=== PATIENT | female | born 1990 | race Caucasian/White ===

== ENCOUNTER 2017-11-02 20:15 | Emergency (ER) | payer OTHER ==
[2017-11-02 20:19] VITALS: BP 145/106; TEMP 99.4; BMI 27.4
--- NOTE | 2017-11-02 20:54 | ED.PDOC ---
General ED Provider: Dr. WALT MADRIGAL Chief Complaint: Palpitations Stated Complaint: Came for the palpitations since 3 pm, she did accidentally take Extra dose of HCTz today. having some SOB Time Seen by Physician: 20:52 Mode of Arrival: Walk-In Information Source: Patient Primary Care Provider: DORIS GALVEZ Nursing and Triage Documentation Reviewed and Agree: Yes Does patient meet sepsis criteria?: No If yes, has appropriate treatment been initiated?: No System Inflammatory Response Syndrome: Not Applicable Sepsis Protocol: For patient's 13 years and over: Temp is 96.8 and below OR 101 and greater Pulse >90 BPM Resp >20/minute Acutely Altered Mental Status Are patient's symptoms suggestive of a new infection, such as: -Pneumonia -Skin, Soft Tissue -Endocarditis -UTI -Bone, Joint Infection -Implantable Device -Acute Abdominal Infection -Wound Infection -Meningitis -Blood Stream Catheter Infection -Unknown Cardiovascular Complaint Exam - Palpitations Complaint/Exam Symptoms Are: Still present Timing: Constant Initial Severity: Mild Current Severity: Mild Character: Reports: Fast Aggravating: Reports: None Alleviating: Reports: None Associated Signs and Symptoms: Reports: Shortness of breath. Denies: Lightheadedness, Dizziness, Syncope, Chest pain, Diaphoresis, Nausea, Vomiting Related Surgical History: Reports: None Cardiac Risk Factors: Reports: None Pulmonary Embolism Risk Factors: Reports: None Atrial Fibrillation Risk Factors: Reports: None Thyroid Exam: Normal Differential Diagnoses: Panic Disorder, Hyperventilation Quality Indicators for AMI: EKG in 10min. Review of Systems - Review Of Systems Constitutional: Reports: No symptoms Eyes: Reports: No symptoms Ears, Nose, Mouth, Throat: Reports: No symptoms Respiratory: Reports: Short of air Cardiac: Reports: Palpitations GI: Reports: No symptoms : Reports: No symptoms Musculoskeletal: Reports: No symptoms Skin: Reports: No symptoms Neurological: Reports: No symptoms Endocrine: Reports: No symptoms Hematologic/Lymphatic: Reports: No symptoms All Other Systems: Reviewed and Negative Past Medical History - Past Medical History Previously Healthy: Yes Endocrine: Reports: None Cardiovascular: Reports: None Respiratory: Reports: None Hematological: Reports: None Gastrointestinal: Reports: None Genitourinary: Reports: None Neuro/Psych: Reports: None Musculoskeletal: Reports: None Cancer: Reports: None Last Menstrual Period: N/A - Surgical History General Surgical History: Reports: None - Family History Family History: Reports: None - Social History Smoking Status: Current every day smoker, Light tobacco smoker Smoking Cessation Counseling Time: > 3 min - 10 min Hx Substance Use: No Alcohol Screening: None - Immunizations Tetanus Shot up to Date: Yes Physical Exam - Physical Exam Appearance: Well-appearing, No pain distress, Well-nourished Eyes: SHASHI, EOMI, Conjunctiva clear ENT: Ears normal, Nose normal, Oropharynx normal Respiratory: Airway patent, Breath sounds clear, Breath sounds equal, Respirations nonlabored Cardiovascular: RRR, Pulses normal, No rub, No murmur GI/: Soft, Nontender, No masses, Bowel sounds normal, No Organomegaly Musculoskeletal: Normal strength, ROM intact, No edema, No calf tenderness Skin: Warm, Dry, Normal color Neurological: Sensation intact, Motor intact, Reflexes intact, Cranial nerves intact, Alert, Oriented Psychiatric: Affect appropriate, Mood appropriate Interpretation - Radiology Interpretation Radiology Interpretation By: ED Physician Radiology Results: Negative Exam Interpreted: CXR Re-Evaluation - Re-Evaluation Time of Re-Evaluation: 22:16 Status: Improved Critical Care Note - Critical Care Note Total Time (mins): 30 Course - Course Hematology/Chemistry: 11/02/17 20:38 11/02/17 20:38 Orders, Labs, Meds: Lab Review 11/02/17 11/02/17 11/02/17 20:38 20:38 20:38 WBC 15.00 H RBC 4.78 Hgb 15.5 Hct 44.9 MCV 93.9 MCH 32.4 H MCHC 34.5 RDW Coeff of Yulissa 12.8 Plt Count 282 Immature Gran % (Auto) 0.5 Neut % (Auto) 83.0 Lymph % (Auto) 9.1 L [place] % (Auto) 7.1 Eos % (Auto) 0.1 Baso % (Auto) 0.2 Immature Gran # (Auto) 0.1 Neut # (Auto) 12.5 H Lymph # (Auto) 1.4 [place] # (Auto) 1.1 Eos # (Auto) 0.0 Baso # (Auto) 0.0 D-Dimer (Manual) 373.58 Sodium 140 Potassium 3.1 L Chloride 102 Carbon Dioxide 23 Anion Gap 18.1 BUN 6 L Creatinine 0.79 Estimated GFR (MDRD) 89.00 BUN/Creatinine Ratio 7.59 Glucose 109 Calcium 9.8 Total Bilirubin 1.0 AST 26 ALT 28 Alkaline Phosphatase 73 Total Creatine Kinase 106 Troponin I < 0.0100 Total Protein 7.9 Albumin 4.3 Globulin 3.6 Albumin/Globulin Ratio 1.19 TSH Free T4 Urine Color Urine Clarity Urine pH Ur Specific [place] Urine Protein Urine Glucose (UA) Urine Ketones Urine Blood Urine Nitrite Urine Bilirubin Urine Urobilinogen Ur Leukocyte Esterase Urine Test Urine Opiates Screen Ur Oxycodone Screen Urine Methadone Screen Ur Propoxyphene Screen Ur Barbiturates Screen U Tricyclic Antidepress Ur Phencyclidine Scrn Ur Amphetamine Screen U Methamphetamines Scrn U Benzodiazepines Scrn Urine Cocaine Screen U Cannabinoids Screen 11/02/17 11/02/17 11/02/17 20:38 20:38 21:30 WBC RBC Hgb Hct MCV MCH MCHC RDW Coeff of Yulissa Plt Count Immature Gran % (Auto) Neut % (Auto) Lymph % (Auto) [place] % (Auto) Eos % (Auto) Baso % (Auto) Immature Gran # (Auto) Neut # (Auto) Lymph # (Auto) [place] # (Auto) Eos # (Auto) Baso # (Auto) D-Dimer (Manual) Sodium Potassium Chloride Carbon Dioxide Anion Gap BUN Creatinine Estimated GFR (MDRD) BUN/Creatinine Ratio Glucose Calcium Total Bilirubin AST ALT Alkaline Phosphatase Total Creatine Kinase Troponin I Total Protein Albumin Globulin Albumin/Globulin Ratio TSH 0.634 Free T4 1.06 Urine Color Urine Clarity Urine pH Ur Specific [place] Urine Protein Urine Glucose (UA) Urine Ketones Urine Blood Urine Nitrite Urine Bilirubin Urine Urobilinogen Ur Leukocyte Esterase Urine Test Urine Opiates Screen Negative Ur Oxycodone Screen Negative Urine Methadone Screen Negative Ur Propoxyphene Screen Negative Ur Barbiturates Screen Negative U Tricyclic Antidepress Negative Ur Phencyclidine Scrn Negative Ur Amphetamine Screen Negative U Methamphetamines Scrn Negative U Benzodiazepines Scrn Positive Urine Cocaine Screen Negative U Cannabinoids Screen Negative 11/02/17 11/02/17 21:30 21:30 WBC RBC Hgb Hct MCV MCH MCHC RDW Coeff of Yulissa Plt Count Immature Gran % (Auto) Neut % (Auto) Lymph % (Auto) [place] % (Auto) Eos % (Auto) Baso % (Auto) Immature Gran # (Auto) Neut # (Auto) Lymph # (Auto) [place] # (Auto) Eos # (Auto) Baso # (Auto) D-Dimer (Manual) Sodium Potassium Chloride Carbon Dioxide Anion Gap BUN Creatinine Estimated GFR (MDRD) BUN/Creatinine Ratio Glucose Calcium Total Bilirubin AST ALT Alkaline Phosphatase Total Creatine Kinase Troponin I Total Protein Albumin Globulin Albumin/Globulin Ratio TSH Free T4 Urine Color Yellow Urine Clarity Clear Urine pH 7.5 Ur Specific [place] 1.020 Urine Protein Negative Urine Glucose (UA) Negative Urine Ketones Negative Urine Blood Negative Urine Nitrite Negative Urine Bilirubin Negative Urine Urobilinogen 0.2 Ur Leukocyte Esterase Negative Urine Test Negative Urine Opiates Screen Ur Oxycodone Screen Urine Methadone Screen Ur Propoxyphene Screen Ur Barbiturates Screen U Tricyclic Antidepress Ur Phencyclidine Scrn Ur Amphetamine Screen U Methamphetamines Scrn U Benzodiazepines Scrn Urine Cocaine Screen U Cannabinoids Screen Orders Category Date Time Status EKG-(ED ONLY) Stat CARDIO 11/02/17 20:31 Completed CBC W/ AUTO DIFF Stat LAB 11/02/17 20:38 Completed COMPREHENSIVE METABOLIC PANEL Stat LAB 11/02/17 20:38 Completed CREATINE KINASE Stat LAB 11/02/17 20:38 Completed D-DIMER Stat LAB 11/02/17 20:38 Completed FREE T4 (FREE THYROXINE) Stat LAB 11/02/17 20:38 Completed FREE TRIIODOTHYRONINE (T3) Stat LAB 11/02/17 20:38 Received TROPONIN I Stat LAB 11/02/17 20:38 Completed TSH [THYROID STIMULATING HORMONE] Stat LAB 11/02/17 20:38 Completed URINALYSIS C & S IF INDICATED Stat LAB 11/02/17 21:30 Completed URINE DRUG SCREEN (RAPID FOR ED) [DRUG SCREEN, URINE, LAB 11/02/17 21:30 Completed RAPID] Stat URINE Stat LAB 11/02/17 21:30 Completed Lorazepam [Ativan] MEDS 11/02/17 20:55 Discontinued 1 mg IM ONCE STA Potassium Chloride [K-Dur] MEDS 11/02/17 21:14 Discontinued 40 meq PO ONCE STA CHEST, 2 VIEWS PA & LAT Stat RADS 11/02/17 21:27 Ordered Medications Discontinued Medications Generic Name Dose Route Start Last Admin Trade Name Freq PRN Reason Stop Dose Admin Lorazepam 1 mg 11/02/17 20:55 11/02/17 21:55 Ativan IM 11/02/17 20:56 1 mg ONCE STA Administration Potassium Chloride 40 meq 11/02/17 21:14 11/02/17 21:54 K-Dur PO 11/02/17 21:15 40 meq ONCE STA Administration Vital Signs: Temp Pulse Resp BP Pulse Ox 11/02/17 20:16 99.4 F 147 H 20 145/106 H 99 CHILANGO Risk Score CHILANGO Risk Score: Risk Score Odds of by 30D 0 0.1 (0.1-0.2) 1 0.3 (0.2-0.3) 2 0.4 (0.3-0.5) 3 0.7 (0.6-0.9) 4 1.2 (1.0-1.5) 5 2.2 (1.9-2.6) 6 3.0 (2.5-3.6) 7 4.8 (3.8-6.1) Departure - Departure Time of Disposition: 22:07 Disposition: HOME SELF-CARE Discharge Problem: Palpitations, Panic, Hypokalemia Instructions: Panic Attack (ED) Condition: Stable Pt referred to PMD for follow-up: Yes IPMP verified?: No Additional Instructions: Increase Hydration Continue taking Xanax please avoid Energy drinks Allergies/Adverse Reactions: Allergies No Known Allergies Allergy (Unverified 11/02/17 20:19) Home Medications: Ambulatory Orders Hydrochlorothiazide 12.5 mg PO DAILY 11/02/17 Potassium Chloride 20 meq PO BID #10 [email or web address] 11/02/17 Disposition Discussed With: Patient
[2017-11-02] MEDS ORDERED: ATIVAN IM STA (20:55)
[2017-11-02] MEDS ORDERED: K-DUR PO STA (21:14)
--- NOTE | 2017-11-03 06:20 | DI ---
EXAM: Chest two views HISTORY: Shortness of breath FINDINGS: Normal cardiac and mediastinal contours. Normal pulmonary vasculature. Lungs are clear. No significant abnormality of the bony thorax. IMPRESSION: Chest radiograph within normal limits.
== END 2017-11-02 22:40 | disposition home or self-care (01) ==
LOC: ED 20:15
DX: R00.2 Palpitations (principal); E87.6 Hypokalemia; F41.0 Panic disorder [episodic paroxysmal anxiety]; R06.02 Shortness of breath; F17.210 Nicotine dependence, cigarettes, uncomplicated
CPT/HCPCS: 36415; 80053; 80306; 81001; 81025; 82550; 84439; 84443; 84481; 84484; 85025; 85379; 93005; 93010; 96372; 99284

== ENCOUNTER 2018-10-11 | Emergency (ER) | END 2018-10-11 06:45 | disposition home or self-care (01) | CPT/HCPCS: 36415; 80053; 82550; 84484; 85025; 85379; 93005; 93010; 99283 ==